=== PATIENT | female | born 1980 | race African-American/Black ===

== ENCOUNTER 2017-04-02 23:42 | Emergency (ER) | payer OTHER ==
[~2017-04-02] VITALS: Ht 172.7 cm; Wt 89.3 kg
[~2017-04-02 23:42] MED LIST: AKWA TEARS OIN3.5 GM LEFT EYE; ATARAX,VISTARIL25 MG PO; BENICAR20 MG; BENICAR5 MG PO; CELEXA20 MG PO; CITALOPRAM HBR20 MG; CITALOPRAM HBR20 MG PO; CLEOCIN300 MG PO; COLACE100 MG PO; DOXYCYCLINE HY100 MG PO; ERGOCALCIF50000 UNIT PO; FLEXERIL10 MG PO; FLUTICASONE PRO16 GM BOTH NARES; GABAPENTIN100 MG PO; INDOCIN25 MG PO; IRON325 MG PO; KLONOPIN0.5 M1 PO; LASIX20 MG PO; LEXAPRO10 MG PO; LORTAB 5-325 M1 EACH PO; LYRICA100 MG PO; LYRICA50 MG PO; MOTRIN800 MG PO; NAPROSYN500 MG PO; NAPROXEN500 M1 PO; NAPROXEN500 MG PO; NATURAL BALANCE15 ML BOTH EYES; NOHOMEMEDS; NORCO 5/3251 TABLET PO; OXYCODONE-APAP1 EACH PO; PREDNISONE10 MG PO; PREDNISONE20 MG PO; PROMETHAZINE HC25 M1 PO; SUDAFED 12-HOU120 MG PO; TESSALON PERLE100 MG PO; TOPIRAMATE25 MG PO; TORADOL10 MG PO; TRAMADOL HCL50 MG PO; VYVANSE30 MG PO; ZANTAC150 MG PO; ZOFRAN4 MG PO
[2017-04-03 01:50] VITALS: BP 148/83
== END 2017-04-03 01:50 | disposition home or self-care (01) ==
LOC: EME 23:42
DX: S39.012A Strain of muscle, fascia and tendon of lower back, initial encounter (principal); S60.222A Contusion of left hand, initial encounter; V43.62XA Car passenger injured in collision with other type car in traffic accident, initial encounter; Y92.410 Unspecified street and highway as the place of occurrence of the external cause; M54.9 Dorsalgia, unspecified; G89.29 Other chronic pain
CPT/HCPCS: 73130; 99281; 99283

== ENCOUNTER 2017-04-05 19:50 | Emergency (ER) | payer OTHER ==
[~2017-04-05] VITALS: Ht 172.7 cm; Wt 89.0 kg
[2017-04-05] MEDS ORDERED: AUGMENTIN875 MG PO (22:39)
[2017-04-05 22:47] VITALS: BP 125/69
== END 2017-04-05 22:49 | disposition home or self-care (01) ==
LOC: EME 19:50
DX: J32.9 Chronic sinusitis, unspecified (principal); I10 Essential (primary) hypertension; J45.909 Unspecified asthma, uncomplicated; F17.200 Nicotine dependence, unspecified, uncomplicated
CPT/HCPCS: 70450; 99281; 99285; J1200; J1885; J2765; J7030